=== PATIENT | male | born 1985 | race Caucasian/White ===

== ENCOUNTER 2024-09-24 10:46 | Outpatient (CLI) | payer OTHER, SELFPAY ==
--- NOTE | ~2024-09-24 | US_ITS ---
Testicular ultrasound with doppler. Indication: Unspecified disorder of male genitalia. Technique: Real-time sonography the scrotum was performed. Color flow Doppler and Doppler spectral an alysis were performed. Findings: The testes are homogeneous in echotexture bilaterally. There is no evidence of an intrates ticular mass. The right testis measures 5.6 x 3.2 x 4.4 cm and the left 5.2 x 2.6 x 3.5 cm. There is color-flow seen to both testes. Arterial and venous spectral waveforms are seen in both testes. There is no sonographic evidence of torsion. The head of the epididymis is visualized bilaterally and is within normal limits. Extremely large right hydrocele present. Impression: Extremely large right hydrocele. No testicular mass or torsion. Reviewed, dictated and finalized at [facility]. IST SPINNER Impression: Extremely large right hydrocele. No testicular mass or torsion.
== END 2024-09-24 10:47 | disposition home or self-care (01) ==
PROVIDERS: PCP Nurse Practitioner; Visit Provider Nurse Practitioner
DX: N43.3 Hydrocele, unspecified (principal); N50.89 Other specified disorders of the male genital organs
CPT/HCPCS: 76870; 93976